=== PATIENT | female | born 1995 | race Two or more races ===

== ENCOUNTER 2017-06-18 13:14 | Emergency (ER) | payer OTHER ==
[2017-06-18 13:22] VITALS: RESP 18
--- NOTE | 2017-06-18 13:57 | EDPHY ---
H & P Stated Complaint: Intermitt sharp CP since yesterday;denies drug use HPI/ROS: CHIEF COMPLAINT: Chest pain, jaw pain HISTORY OF PRESENT ILLNESS: The patient is a 22 y/o female with a history of migraines and depression arriving with her mother complaining of chest and jaw pain onset about 24 hours ago. Her chest pain is localized midsternally and described as constant. It is currently radiating through to her back and is aggravated by standing. She denies any recent trauma or illness. Her jaw pain is located bilaterally closer to her mouth and "feels like someone is taking my cheeks and stretching them." She took a small dose of liquid children's Motrin for her symptoms without improvement (she cannot swallow pills). No sore throat , cough, dental pain, abdominal pain, vomiting, fever, dysuria, leg swelling, recent long travel. She had one episode of loose stool this morning. No family or personal history of cardiac disease. REVIEW OF SYSTEMS: A ten point review of systems was performed and is negative with the exception of the items mentioned in the HPI. Past medical history: Depression, migraines - Maxalt Past surgical history: Denies Family history: No known cardiac disease at a young age Social history: Mother at bedside. General Appearance: Alert. Vital signs reviewed. Eyes: Pupils equal and round, no conjunctival injection, no discharge. Anicteric. ENT, Mouth: Mucous membranes are moist, no oropharyngeal erythema or edema. Dentition in good repair. Gingiva normal. No swelling of the floor of the mouth. Neck: No lymphadenopathy, supple. No thyromegaly. No pain with palpation of the cervical spine in the midline. Respiratory: Lungs are clear to auscultation; no wheezes, rales, or rhonchi. Cardiovascular: Regular rate and rhythm; no murmur, rub, or gallop. Gastrointestinal: Abdomen is soft and nontender, no masses or organomegaly, bowel sounds normal. Skin: Warm and dry, no rashes on exposed skin, normal color. Back: Nontender to palpation over the thoracolumbar spine. No CVAT. Extremities: No lower extremity edema, no calf tenderness or swelling. Neurological: Alert and oriented. Moving all four extremities easily and equally. Psychiatric: Normal affect. - Personal History LMP (Females 10-55): 1-7 Days Ago Current Tetanus Diphtheria and Acellular Pertussis (TDAP): Yes - Medical/Surgical History Other PMH: migraines - Social History Smoking Status: Never smoked Constitutional: Initial Vital Signs Temperature (C) 37 C 06/18/17 13:19 Heart Rate 83 06/18/17 13:19 Respiratory Rate 18 06/18/17 13:19 Blood Pressure 120/69 06/18/17 13:19 O2 Sat (%) 97 06/18/17 13:19 O2 Delivery Mode Room Air Allergies/Adverse Reactions: No Known Allergies Allergy (Verified 06/18/17 13:19) Home Medications: Medication Instructions Recorded RIZATRIPTAN BENZOATE [Maxalt [employer]] 10 mg PO AD PRN 08/24/12 Control 06/18/17 Medical Decision Making - Diagnostics EKG Interpretation: 12 lead EKG is interpreted in Trace master View by emergency department physician. Imaging: I viewed and interpreted images myself ED Course/Re-evaluation: This is a 22 y/o female who presents with a 24-hour history of chest pain radiating to her back and bilateral jaw pain. She has no significant cardiac or PE risk factors. She does take control pills but based on Wells criteria she is at low risk for PE. Initially, D-dimer was ordered. However, the blood was not drawn. When I spoke with the patient and her mother about this later they both decided to forego this test and felt comfortable that her signs and symptoms were unlikely to represent PE. Her exam is unremarkable. Plan for IV, labs, EKG, and chest x-ray. 15mg IV Toradol administered. The 12 lead EKG was interpreted by myself. Sinus rhythm rate 70. See hard copy and/or "tracemaster" electronic copy for interpretation. Chest x-ray is negative for acute process. She had complete pain relief with IV Toradol. She is comfortable returning home. I am going to give her dosing recommendations for ibuprofen and Tylenol. We reviewed the danger signs that should prompt her to be re-evaluated. There is no evidence of pneumonia or pneumothorax on chest x-ray. I am not concerned about infection at this point in time. As above, PE is unlikely. She also complained of bilateral lower jaw pain on admission. I do not find evidence of a dental infection. The floor of her mouth appears normal and I do not suspect Marcelo's angina. She does not have oral pharyngeal erythema or swelling and I do not think that she has a strep throat or other infectious process. There is no lymphadenopathy. She is managing her secretions easily and is in no respiratory distress. Her jaw pain has resolved and I do not feel that further evaluation of this problem is needed at this point in time. Differential Diagnosis: Chest pain including but not limited to myocardial ischemia, pulmonary embolus, chest wall pain, pleural inflammation and pulmonary infectious causes. - Data Points Laboratory Results: Laboratory Results 06/18/17 14:10 06/18/17 14:10 06/18/17 14:10 D-Dimer Cancelled Medications Given: Discontinued Medications Ketorolac Tromethamine (Toradol) 15 mg IVP EDNOW ONE Stop: 06/18/17 14:47 Last Admin: 06/18/17 14:59 Dose: 15 mg Departure - Departure Disposition: Home, Routine, Self-Care Clinical Impression: Chest pain Qualifiers: Chest pain type: other chest pain Qualified Code(s): R07.89 - Other chest pain ; R07.8 - Other chest pain Condition: Good Instructions: Chest Wall Pain (ED) Additional Instructions: Take 400mg ibuprofen every 6-8 hours as needed for pain over the next few days. You have to calculate this out based upon the dosing on the bottle of liquid ibuprofen. You can also take Tylenol 500 mg every 4 hours for pain. Follow up with your primary care provider this week for unimproved symptoms. Return to the ED for severe pain, difficulty breathing, fainting, calf pain or swelling, fever, inability to swallow, or other worsening of condition. Referrals: Rakel Jimenes MD [Primary Care Provider] - As per Instructions Report Scribed for: Jesika Ty Report Scribed by: Lisandra Hawley Date of Report: 06/18/17 Time of Report: 14:37 Physician Review and Approval Statement: 06/18/17 13:57 Portions of this note were transcribed by the certified medical technician. I, Dr. Jesika Ty, personally performed the history, physical exam, and medical decision- making; and confirmed the accuracy of the information in the transcribed note.
--- NOTE | 2017-06-18 13:59 | CPEKG ---
Heart Rate: 70 RR Interval: 857 P-R Interval: 140 QRSD Interval: 88 QT Interval: 376 QTC Interval: 406 P [place]: 72 QRS [place]: 75 T Wave [place]: 47 EKG Severity - OTHERWISE NORMAL ECG - EKG Impression: SINUS RHYTHM Electronically Signed By: Jesika Ty 18-Jun-2017 15:26:29
[2017-06-18] MEDS ORDERED: KETOROLAC 15 MG/1 ML SDV IVP ONE (14:46)
[2017-06-18 14:55] LABS: % IMMATURE GRANULYOCYTES 0.2 % (0.0-1.1); ABSOLUTE IMMATURE GRANULOCYTES 0.02 10^3/uL (0.00-0.10); ADD DIFF? NO; ADD MORPH? NO; ADD SCAN? NO; ATYPICAL LYMPHOCYTE FLAG 0 (0-99); FRAGMENT RBC FLAG 20 (0-99); HEMATOCRIT 38.9 % (38.0-47.0); HEMOGLOBIN 14.1 g/dL (12.6-16.3); LEFT SHIFT FLG 0 (0-99); LIPEMIA HEMOLYSIS FLAG 90 (0-99); MEAN CELL HEMOGLOBIN CONCENTR. 36.2 g/dL (32.4-36.7); MEAN CELL VOLUME 88.2 fL (81.5-99.8); MEAN PLATELET VOLUME 13.1 fL (8.7-11.7); PLATELET CLUMPS FLAG 30 (0-99); PLATELET COUNT 159 10^3/uL (150-400); RED BLOOD CELL COUNT 4.41 10^6/uL (4.18-5.33); RED CELL DISTRIBUTION WIDTH 11.9 % (11.5-15.2)
[2017-06-18 15:00] LABS: ANION GAP 12 mEq/L (8-16); CALCIUM 9.2 mg/dL (8.5-10.4); CARBON DIOXIDE 21 mEq/l (22-31); CHLORIDE 108 mEq/L (97-110); CREATININE 0.8 mg/dL (0.6-1.0); GLOMERULAR FILTRATION RATE > 60; GLUCOSE 77 mg/dL (70-100); POTASSIUM 3.9 mEq/L (3.5-5.2); SODIUM 141 mEq/L (134-144)
[2017-06-18 16:20] VITALS: BP 112/74; PULSE 78; TEMP 98.1; O2SAT 96
== END 2017-06-18 16:20 | disposition home or self-care (01) ==
DX: R07.89 Other chest pain (principal)
CPT/HCPCS: 96374; J1885

== ENCOUNTER → 2018-06-13 | Outpatient (CLI) | payer MEDICAID | LOC: BMCIMAGING 16:05 → MERGE 16:05 | PROVIDERS: ATTEND Family Medicine | DX: R10.31 Right lower quadrant pain (principal) ==